=== PATIENT | female | born 1935 | race Caucasian/White ===

== ENCOUNTER → 2016-07-15 | Day surgery (SDC) | payer MEDICARE, OTHER ==
[~2016-07-15] VITALS: Ht 175.3 cm; Wt 73.6 kg
[~2016-07-15] MED LIST: ASPIRIN EC81 MG PO; ATROVENT I0.5 MG/2.5 INH; BYSTOLIC10 MG PO; CARDIZEM CD (T120 MG PO; CARDIZEM LA180 MG PO; CARDURA2 MG PO; COUMADIN ** IA3 MG PO; CYTOTEC200 MCG PO; DIOVAN160 MG PO; FIBER LAXATIVE625 MG PO; FLONASE 50 MCG/16 GM NOSE; ISOSORBIDE MONO20 MG PO; LASIX20 MG PO; LASIX80 MG PO; LEXAPRO20 MG PO; LIPITOR40 MG PO; METAMUCIL CAPSU1 CAP PO; MINOXIDIL2.5 MG PO; MIRALAX17 GM PO; MUCINEX600 MG PO; NITROSTAT0.4 MG SL; NORCO 5-325 TA1 EACH PO; NORVASC10 MG PO; OCUVEL CAPSULE1 EACH PO; OCUVITE SOFTGE1 EACH PO; PAIN RELIEVER500 MG PO; SALINE NASAL SP88 ML NOSE; SENNA-DOCUSATE1 EACH PO; SENNOSIDES-DOC1 EACH PO; SINGULAIR10 MG PO; SYMBICORT 80-10.2 GM INH; TRADJENTA5 MG PO; ULTRAM50 MG PO; VITAMIN B-121000 MCG PO; ZADITOR 0.025% O5 ML OPHTH
--- NOTE | ~2016-07-15 | OR ---
PATIENT'S NAME: BASIM MALCOLM [facility] AGE: 80 Y [address] ROOM: [place] [address] LOCATION: [facility] ADMIT DATE: 07/15/2016 OR/Procedure Report DISCHARGE DATE: FAMILY PHYSICIAN: Kofi Escobar MD ATTENDING PHYSICIAN: BRODIE MCBRIDE SURGEON: Brodie Mcbride MD REPRODUCTION ORDER PROCESSOR: DATE OF PROCEDURE: 07/15/2016 PREOPERATIVE DIAGNOSIS: End-stage renal disease. POSTOPERATIVE DIAGNOSIS: End-stage renal disease. PROCEDURE: Left arm brachiobasilic fistula. LEAD PORTFOLIO MANAGER: HANSEL Aiken. ANESTHESIA: General. ESTIMATED BLOOD LOSS: 5 mL. OPERATIVE FINDINGS: Good thrill and bruit in the fistula. Strong radial and ulnar signals at the end of the case. DESCRIPTION OF PROCEDURE: The patient was brought to the operating room and placed supine on the operative table, placed under general anesthesia, prepped and draped in a sterile manner. Preoperative time-out was performed. The patient received preoperative antibiotics. We used ultrasound guidance to identify the location of the basilic vein as well as the brachial artery. We made a transverse incision 2 cm proximal to the antecubital fossa, dissected down the fascia, incised the fascia in a longitudinal manner, dissected out the basilic vein in a 360-degree fashion. We then ligated and transected it distally. After giving 5000 units of heparin, we made a 4 mm arteriotomy on the brachial artery. We then did a standard 6-0 Prolene anastomosis from the vein to the artery. We removed the clamps. There was excellent flow into the fistula, which was confirmed with the use of Doppler. There was strong radial and ulnar signal. Heparin was reversed with the use of protamine. We used a total of 5000 units of heparin. Deep layers were closed with 2-0 and 3-0 Vicryl. Thrombin was used locally in the wound. Skin was closed with running 4-0 Monocryl. The patient tolerated the procedure well and transferred to recovery room and then home later that day. PATIENT'S NAME: BASIM MALCOLM [facility] AGE: 80 Y [address] ROOM: [place], [place] [address] LOCATION: [facility] ADMIT DATE: 07/15/2016 OR/Procedure Report DISCHARGE DATE: FAMILY PHYSICIAN: Kofi Escobar MD ATTENDING PHYSICIAN: BRODIE MCBRIDE MD FKM/modl /[id number] d: 07/15/162205 t: 07/17/16 1254, OPERATIVE SUMMARY
[2016-07-15 09:31] LABS: BASOPHIL # 0.1 K/uL (0.0-0.2); BASOPHIL % 0.8 %; EOSINOPHIL # 0.1 K/uL (0.0-0.5); EOSINOPHIL % 2.3 %; HEMATOCRIT 26.6 % (30.0-46.0); HEMOGLOBIN 8.5 g/dL (10.0-15.0); IMMATURE GRANULOCYTE % 0.3 %; LYMPHOCYTE # 1.9 K/uL (0.8-4.0); LYMPHOCYTE % 30.6 %; MCH 30.6 pg (27.0-34.0); MCV 95.7 fl (83.0-98.0); MONOCYTE # 0.6 K/uL (0.0-1.0); MPV 10.6 fl (9.4-12.4); NEUTROPHIL # (ANC) 3.5 K/uL (1.8-7.8); NRBC % 0 /100WBC (0-0.00); PLATELET COUNT 276 K/uL (150-450); RBC 2.78 M/uL (3.00-5.00); RDW-CV 17.2 % (11.9-14.6); WBC 6.2 K/uL (4.0-11.0)
[2016-07-15 09:38] LABS: INR - (THERAPEUTIC) 1.46 (0.92-1.07); PROTIME 15.4 SECONDS (9.8-11.4)
[2016-07-15 09:49] LABS: ALBUMIN 2.8 gm/dL (3.5-5.0); CALCIUM 8.4 mg/dL (8.5-10.5); CREATININE 2.2 mg/dL (0.5-1.1); TOTAL PROTEIN 5.3 g/dL (6.0-8.4)
--- NOTE | 2016-07-15 11:48 | NUR ---
1147 LABETOLOL 5 MG IVP FOR BP 191/81
--- NOTE | 2016-07-15 12:20 | NUR ---
1220 REPORT TO Dav HUNT RN TO PHASE 2
== END | disposition disaster alternative care site (69) ==
LOC: GPOC 06-26 15:00 → GSDC 07-01 15:00
PROVIDERS: Surgery Vascular Surgery
PROC: 03180JD Bypass Left Brachial Artery to Upper Arm Vein with Synthetic Substitute, Open Approach (ICD-10-PCS; principal; 2016-07-15)
DX: E11.22 Type 2 diabetes mellitus with diabetic chronic kidney disease (principal); I13.2 Hypertensive heart and chronic kidney disease with heart failure and with stage 5 chronic kidney disease, or end stage renal disease; I50.9 Heart failure, unspecified; N18.6 End stage renal disease; I48.91 Unspecified atrial fibrillation; I73.9 Peripheral vascular disease, unspecified; J45.909 Unspecified asthma, uncomplicated; K21.9 Gastro-esophageal reflux disease without esophagitis; E66.9 Obesity, unspecified; Z68.22 Body mass index [BMI] 22.0-22.9, adult; Z88.0 Allergy status to penicillin; Z88.5 Allergy status to narcotic agent; Z88.2 Allergy status to sulfonamides; Z88.8 Allergy status to other drugs, medicaments and biological substances; Z90.710 Acquired absence of both cervix and uterus; Z98.890 Other specified postprocedural states; Z96.641 Presence of right artificial hip joint; Z87.891 Personal history of nicotine dependence; Z79.82 Long term (current) use of aspirin; Z79.899 Other long term (current) drug therapy
CPT/HCPCS: J1100; J1644; J2001; J2405; J2720; J3010; J7030

== ENCOUNTER 2016-09-09 09:13 | Inpatient (IN) | payer MEDICARE, OTHER ==
[~2016-09-09] VITALS: Ht 175.3 cm; Wt 63.2 kg
--- NOTE | ~2016-09-09 | CON ---
PATIENT'S NAME: BASIM MALCOLM [facility] AGE: 80 Y [address] ROOM: [place] [address] LOCATION: [facility]U ADMIT DATE: 09/09/2016 Consultation DISCHARGE DATE: FAMILY PHYSICIAN: Kofi Escobar MD ATTENDING PHYSICIAN: BRODIE MCBRIDE DATE OF CONSULTATION: 09/09/2016 REFERRING PHYSICIAN: Dandy Coe REQUESTING PHYSICIAN: Brodie Mcbride M.D. REASON FOR CONSULTATION: End-stage renal failure, the patient currently on dialysis. HISTORY OF PRESENT ILLNESS: The patient is an 80-year-old white female, who was started on dialysis couple of months ago because of hypertensive nephrosclerosis. She also had issues with uncontrolled hypertension and fluid overload. Dr. Mcbride did put her in left upper arm AV fistula and she was admitted for revision of the fistula. Normally, she dialyzes on Tuesdays, , and Saturdays. I have been asked to see her because she will need her dialysis treatment tomorrow. REVIEW OF SYSTEMS: GENERAL: She denies any fever, chills, or rigors. HEENT: Denies any sore throat or sinus congestion. CARDIOVASCULAR: Denies any chest pain or dyspnea on exertion. RESPIRATORY: Denies any shortness of breath, cough, or wheezing. GI: Denies any abdominal pain, nausea, or vomiting. : Denies any dysuria or frequency. She still makes urine. MUSCULOSKELETAL: Denies joint pain or swelling. SKIN: Denies rash or pruritus. Denies any allergies or hay fever. PAST MEDICAL HISTORY: Diabetes mellitus, hypertension, orthostatic hypotension, end-stage renal disease, chronic atrial fibrillation, peripheral vascular disease, hyperlipidemia, and congestive heart failure from diastolic dysfunction. PAST SURGICAL HISTORY: Left upper arm primary brachiocephalic AV fistula placement. ALLERGIES: PENICILLIN, RAMIPRIL, MORPHINE, LABETALOL, AND DICYCLOMINE. MEDICATIONS: PATIENT'S NAME: BASIM MALCOLM [facility] AGE: 80 Y [address] ROOM: [address] [place] [id number] LOCATION: [facility]U ADMIT DATE: 09/09/2016 Consultation DISCHARGE DATE: FAMILY PHYSICIAN: Kofi Escobar MD ATTENDING PHYSICIAN: BRODIE MCBRIDE 1. Aspirin 81 mg a day. 2. Atorvastatin 40 mg a day. 3. Bystolic 10 mg a day. 4. Cytotec 200 mcg twice a day. 5. Lexapro 20 mg a day. 6. Singulair 10 mg a day. 7. Symbicort 2 puffs daily. 8. Tramadol 50 mg a day p.r.n. 9. Vitamin B12, 1000 mcg a day. 10. Warfarin as prescribed. 11. Diltiazem 180 mg a day. 12. Furosemide 80 mg a day. 13. Minoxidil 2.5 mg at bedtime. 14. Glutathione 600 mg a day. SOCIAL HISTORY: She lives in [place]. She quit tobacco long time ago. FAMILY HISTORY: Mother had nephritis. Grandfather had diabetes, leading to renal failure, but not on dialysis. PHYSICAL EXAMINATION: GENERAL APPEARANCE: This is an 80-year-old white female, sitting in the hospital bed, not in acute distress. VITAL SIGNS: Temperature 98.1, pulse 71, systolic blood pressure is 180 and diastolic blood pressure 77, and respiratory rate 18. HEENT: Head is normocephalic. Pupils are round and equal. Normal eyelid and conjunctivae. Oral cavity clear. Moist mucous. NECK: Trachea central. No thyromegaly. No bruit. HEART: Heart sounds are audible in all the areas without any gallop or murmur. There is no pericardial rub. Pulse is regular in rhythm. LUNGS: Bilaterally clear to auscultate. No intercostal retraction. ABDOMEN: Soft and nontender. EXTREMITIES: She does not have any leg edema. SKIN: She has left upper arm AV fistula with positive thrill. LABORATORY DATA: Glucose 112, BUN of 80, creatinine of 1.8, and potassium 2.9. Her hemoglobin is 10.5 and hematocrit is 31.5. ASSESSMENT: 1. Dialysis dependent patient. 2. Left upper arm arteriovenous fistula revision. 3. Diabetes mellitus. PATIENT'S NAME: BASIM MALCOLM [facility] AGE: 80 Y [address] ROOM: [id number] [place], [place] [address] LOCATION: [facility]PCU ADMIT DATE: 09/09/2016 Consultation DISCHARGE DATE: FAMILY PHYSICIAN: Kofi Escobar MD ATTENDING PHYSICIAN: BRODIE MCBRIDE 4. Hypertension. 5. Accelerated hypertension. PLAN: Clearance for dialysis tomorrow. I believe that she is significantly volume dependent. She continues to have uncontrolled hypertension and we may have to adjust her antihypertensive medicine. She also has history of orthostatic hypotension. We will plan to see her again on dialysis tomorrow morning. I would like to thank Dr. Mcbride for allowing me to participate in this patient's care. M MD NADEGE JERONIMO/carlos /[id number] d: 09/10/16 1845 t: 10/01/16 1104, CONSULTATION REPORT
--- NOTE | ~2016-09-09 | OR ---
PATIENT'S NAME: BASIM MALCOLM [facility] AGE: 80 Y [address] ROOM: [address] [address] [facility] ADMIT DATE: 09/09/2016 OR/Procedure Report DISCHARGE DATE: FAMILY PHYSICIAN: Kofi Escobar MD ATTENDING PHYSICIAN: BRODIE MCBRIDE SURGEON: Brodie Mcbride MD EMERGENCY MEDICAL TECHNICIAN: DATE OF PROCEDURE: 09/11/2016 PREOPERATIVE DIAGNOSIS: End-stage renal disease. POSTOPERATIVE DIAGNOSIS: End-stage renal disease. PROCEDURE: Left arm brachiobasilic AV fistula superficialization. HELMINTHOLOGIST: HANSEL Aiken. ANESTHESIA: General. ESTIMATED FLUID LOSS: 10 mL. OPERATIVE FINDINGS: Fistula now located directly into the skin. PROCEDURE: The patient was brought to the operating room, placed supine on the operating table, placed under general anesthesia, prepped and draped in a sterile manner. Preoperative time-out was performed. The patient received preoperative antibiotics. We used ultrasound guidance to identify the location of the basilic vein. We then made a longitudinal incision along the path of the vein, dissected down the fascia, incised the fascia in a longitudinal manner, dissected out the vein in a 360-degree fashion, and ligated and transected all branches. We reapproximated the deep layers below the vein using interrupted Vicryl sutures. We then reapproximated the skin with interrupted 4-0 nylon. The patient tolerated the procedure well and transferred to the recovery room and back up to the floor. BRODIE MCBRIDE MD FKM/modl /[id number] d: 09/12/16133 t: 09/21/161811, OPERATIVE SUMMARY
--- NOTE | ~2016-09-09 | HP ---
PATIENT'S NAME: BASIM MALCOLM [facility] AGE: 80 Y [address] ROOM: [place] [address] LOCATION: [facility]PCU ADMIT DATE: 09/09/2016 History & Physical DISCHARGE DATE: FAMILY PHYSICIAN: Kofi Escobar MD ATTENDING PHYSICIAN: CASPER MATTHEWS DATE OF SERVICE: CHIEF COMPLAINT: High blood pressure. HISTORY OF PRESENT ILLNESS: An 80-year-old lady with a past medical history of end-stage renal disease, currently on dialysis, hypertension, diabetes, and peripheral vascular disease, who was here at [facility] for an outpatient procedure for fistula formation on the left side. She was found to be very hypertensive with a blood pressure and systolic blood pressure in the 230s in the preoperative area and was admitted to the hospital and surgery was deferred. On my encounter, she is a very pleasant lady, comfortable. She does not complain of any headache, any dizziness, or any chest pain, or palpitations. She have had trouble with the shortness of breath at home and uses 2 L of oxygen at nighttime, but does not have any active sputum production or shortness of breath, which is more than her baseline. Further inquiry reveals she does not have any abdominal pain, any constipation, any diarrhea, or any weakness anywhere. REVIEW OF SYSTEMS: All other systems were reviewed and were negative except what is mentioned in the HPI. PAST MEDICAL HISTORY: Include: 1. Hypertension. 2. Type 2 diabetes mellitus. 3. Orthostatic hypotension. 4. End-stage renal disease. 5. Essential hypertension. 6. Atrial fibrillation, on long-term anticoagulation. 7. Atrial tachycardia. 8. Peripheral vascular disease. 9. Hyperlipidemia. 10. Chronic hypoxic respiratory failure/nocturnal hypoxia using 2 L of oxygen nighttime. 11. Congestive heart failure, diastolic in nature. PATIENT'S NAME: BASIM MALCOLM [facility] AGE: 80 Y [address] ROOM: [address] [address] LOCATION: [facility]PCU ADMIT DATE: 09/09/2016 History & Physical DISCHARGE DATE: FAMILY PHYSICIAN: Kofi Escobar MD ATTENDING PHYSICIAN: CASPER MATTHEWS ALLERGIES: THE PATIENT IS ALLERGIC TO PENICILLIN, RAMIPRIL, MORPHINE, LABETALOL, DICYCLOMINE, LEVOFLOXACIN, OLMESARTAN, VICTOZA, BENICAR, AND GANTRISIN. SOCIAL HISTORY: The patient quit smoking a long time ago. Lives in [place]. FAMILY HISTORY: Significant for stroke in her father at the age of 50 as well as in grandfather who was younger than age of 50. MEDICATIONS: Per MAR PHYSICAL EXAM: VITAL SIGNS: Blood pressure 215/87, 62, afebrile, 19, saturating above 90% on room air. GENERAL: No acute distress. Alert and oriented x3. HEENT: Head: Atraumatic, normocephalic. Eyes: Nonicteric. No pallor. Oropharynx: Moist mucous membranes. CARDIOVASCULAR: S1, S2. Systolic ejection murmur at the aortic region radiating to the carotids. LUNGS: Clear to auscultation bilaterally. ABDOMEN: Soft, nontender, nondistended. Bowel sounds present. EXTREMITIES: No clubbing, cyanosis, or edema. PSYCH: Normal affect, mood, and speech. NEURO: Cranial nerves 2 through 12 intact. No motor or sensory deficit noted. LABORATORY DATA: Lab work done today was unremarkable for the CBC. Chemical panel was remarkable for a creatinine of 1.8, glucose of 112, and a serum potassium of 2.9, INR was 1.0. ASSESSMENT: 1. Hypertensive urgency. 2. Type 2 diabetes mellitus. 3. End-stage renal disease. 4. Hypertension. 5. Atrial fibrillation, on long-term anticoagulation. 6. Atrial tachycardia. 7. Peripheral vascular disease. 8. Hyperlipidemia. 9. Chronic hypoxic respiratory failure/nocturnal hypoxia. 10. Congestive heart failure diastolic in nature, not exacerbation right now. 11. Hypokalemia. PATIENT'S NAME: BASIM MALCOLM [facility] AGE: 80 Y [address] ROOM: [address] [address] LOCATION: [facility]PCU ADMIT DATE: 09/09/2016 History & Physical DISCHARGE DATE: FAMILY PHYSICIAN: Kofi Escobar MD ATTENDING PHYSICIAN: CASPER MATTHEWS PLAN: 1. We are going to admit this lady to the progressive care unit at this point. We are going to lower the blood pressure very cautiously with low dose of hydralazine. We are going to resume her home medications. We will monitor her there and see her progress there. For diabetes, we are going to put her on sliding scale and monitor the blood glucose level. She have not required insulin for a long time. End-stage renal disease, we will consult Nephrology and see if she is in need of any dialysis. 2. Atrial fibrillation. We will continue to monitor the rhythm and rate on the tele monitor. We will provide supplemental oxygen and replace the potassium. The patient is full code. ACTIVITY: As tolerated. DIET: Renal diet. MD SANDY PAVON/carlos /[id number] D: [id number] T: [id number] HISTORY & PHYSICAL
[2016-09-09 10:09] LABS: BASOPHIL % 0.7 %; EOSINOPHIL % 0.5 %; HEMATOCRIT 31.6 % (30.0-46.0); HEMOGLOBIN 10.5 g/dL (10.0-15.0); IMMATURE GRANULOCYTE % 0.2 %; LYMPHOCYTE # 1.1 K/uL (0.8-4.0); LYMPHOCYTE % 25.5 %; MCH 31.2 pg (27.0-34.0); MCHC 33.2 gm/dL (32.0-36.5); MCV 93.8 fl (83.0-98.0); MONOCYTE # 0.5 K/uL (0.0-1.0); MONOCYTE % 11.9 %; MPV 10.7 fl (9.4-12.4); NEUTROPHIL # (ANC) 2.7 K/uL (1.8-7.8); NEUTROPHIL % 61.2 %; NRBC % 0 /100WBC (0-0.00); RBC 3.37 M/uL (3.00-5.00); RDW-CV 15.5 % (11.9-14.6); WBC 4.4 K/uL (4.0-11.0)
[2016-09-09 10:10] LABS: PLATELET COUNT 207 K/uL (150-450)
[2016-09-09 10:19] LABS: PROTIME 10.5 SECONDS (9.8-11.4)
[2016-09-09 10:28] LABS: ALBUMIN 3.2 gm/dL (3.5-5.0); ANION GAP 11.9 (10.0-19.0); CALCIUM 8.7 mg/dL (8.5-10.5); CREATININE 1.8 mg/dL (0.5-1.1); TOTAL BILIRUBIN 0.8 mg/dL (0.0-1.5); TOTAL PROTEIN 5.7 g/dL (6.0-8.4)
[2016-09-09 10:33] LABS: POTASSIUM 2.9 mMol/L (3.7-5.1)
--- NOTE | 2016-09-09 19:24 | NUR ---
PATIENT TRANSFERED TO PCU AT 12:40. PATIENT HAS RIGHT CHEST TEMPORARY DIALYSIS LINE. LEFT ARM FISTULA WITH PLAN FOR SURGERY ON WEDNESDAY WITH DR MATTHEWS. BP 220/84. DR PERLA NOTIFIED AND IV HYDRALAZINE GIVEN X1. BP 160/75. ORTHOSTATICS COMPLETED AND WRITTEN IN PROGRESS NOTES. PLAN FOR DIALYSIS TOMORROW.
--- NOTE | 2016-09-10 04:19 | NUR ---
Significant Event: SBP'S HAVE BEEN SOMEWHAT CONTROLLED TO WHAT SHE WAS RUNNING. PREVIOUSLY HAD BEEN ABOVE 200, DURING SHIFT ALL SBP'S IN THE 170'S WITH A HIGH OF 180, DO HAVE PRN HYDRALAZINE IF >180. ALL OTHER VSS. PUT 2L ON HS PER HOME DOSE. CONSULTED NEPHROLOGY. WILL HAVE DIALYSIS TODAY AND THEN FISTULA REVISION/SUPERVISULIZAITON ON WEDNESDAY. Follow up:
[2016-09-10 04:30] LABS: ANION GAP 11.3 (10.0-19.0); CALCIUM 8.9 mg/dL (8.5-10.5); CREATININE 2.1 mg/dL (0.5-1.1); POTASSIUM 3.3 mMol/L (3.7-5.1)
--- NOTE | 2016-09-10 17:08 | NUR ---
Significant Event: PT IS AOX3. SBPs 120-210S. 60-70s. NSR. AFEBRILE. RA, WEARS 2L AT HS. IV R)UA SALINE LOCKED. R) TEMPORARY DIALYSIS CATH. L)FISTULA. GOOD BRUIT AND THRILL. FISTULA REVISION PLANNED FOR TOMORROW AM. PERMITS NEED SIGNED. PT HAD DIALYZED 1.4 LITERS OFF TODAY. UP SBA, DENIES PAIN. PLEASANT AND COOPERATIVE WITH CARES. Follow up: SURGERY TOMORROW?
[2016-09-11 03:53] LABS: ALBUMIN 2.8 gm/dL (3.5-5.0); ANION GAP 12.1 (10.0-19.0); CALCIUM 8.2 mg/dL (8.5-10.5); CREATININE 1.6 mg/dL (0.5-1.1); POTASSIUM 4.1 mMol/L (3.7-5.1)
[2016-09-11 03:55] LABS: PHOSPHORUS 1.4 mg/dL (2.5-4.9)
--- NOTE | 2016-09-11 04:24 | NUR ---
Significant Event: Patient A/Ox3. VSS on RA, but patient has been very hypertensive this shift. Blood pressures at the beginning of the shift were 200s-210s. IV hydralazine given with no improvements. PO hydralazine ordered by Dr. Tracy with no improvements. Did start patient on IV labetalol gtt. Gave 40mEq of PO K+ for K+ of 3.3. Permits signed for fistula repair. Blood pressures since starting labetalol gtt have been 160s-170s. Patient does begin to feel light headed with blood pressures around 150. Patient has been NPO since midnight. Follow up: Fistula repair today
--- NOTE | 2016-09-11 10:36 | NUR ---
D:Patient left for [facility] at 0810 per cart.
--- NOTE | 2016-09-11 15:30 | NUR ---
D:Patient returned from PACU per cart. Is sleepy, but does rouse, able to answer questions approp. Labetolol is off. Has dressing to left upper arm, has small amount of drainage- bloody. Family waiting in room. Is on 4L O2. P:Monitor post revision of fistula
--- NOTE | 2016-09-11 17:05 | NUR ---
Significant Event:Patient had revision of fistula today. Dressing is has small to mod amount of drainage to it. Labetolol gtt is off, has been since OR. Will be restarting home meds. Is on O2 4L, has been sleepy since OR. Accuchecks- at 0700-137, 1100-153. Patient wants to go go home tomorrow. Will have dialysis tomorrow at 0900. Follow up:Restart Coumadin when?
--- NOTE | 2016-09-12 05:10 | NUR ---
Significant Event: PT is A&0x3. Lung sounds are clear on 4L. PT has a small amount of dried drainage under the surgical dressing. Bruit can be heard at the revised fistula and a thrill can be felt. PPP, but thready in the lower extremities and the left radial. Accucheck at 2100 - 242. Up SBA to bathroom. Tylenol given once at 1900. Follow up: Dialysis at 0900 today.
[2016-09-12 06:08] LABS: ALBUMIN 2.9 gm/dL (3.5-5.0); ANION GAP 13.3 (10.0-19.0); CALCIUM 8.5 mg/dL (8.5-10.5); PHOSPHORUS 3.6 mg/dL (2.5-4.9); POTASSIUM 4.3 mMol/L (3.7-5.1)
[2016-09-12 06:12] LABS: CREATININE 2.6 mg/dL (0.5-1.1)
--- NOTE | 2016-09-12 13:59 | NUR ---
D:Patient to dialusis at 1000, will be having CXR first. P:Possible dc post dialysis
--- NOTE | 2016-09-12 18:31 | NUR ---
D:Patient returned from dialysis, patient excited to go home. In dialysis they removed 2L of fluid. Initially SBP was 204 when taken after getting back to the room at 1450. 10 minutes later SBP was 175. Dr. Yao up here to discharge patient. Hydrazaline les.Ivette and Rusty given. Daughter is here. P:Discharge patient back to group home
--- NOTE | 2016-09-12 18:45 | NUR ---
D:Patient is going back to [facility], she is SNF. Patient was there prior to admission here. Dressing to left upper arm, has old drainage. It may be removed after 48 hours and left open to air. No change in medication. Has temporary line to right chest. Has personal belongings. Discharge per wheelchair, released to daughter, has personal belongings. Discharged per wheelchair at 1650.
== END 2016-09-12 16:30 | disposition disaster alternative care site (69) | DRG 252 ==
LOC: GSDC 09:13 → GPCU 09:13 → GSDC 09:14 → GPOC 10:30 → GPCU 09-12 16:30
PROVIDERS: Internal Medicine Nephrology; ADMIT Surgery Vascular Surgery
PROC: 03W Upper Arteries, Revision (ICD-10-PCS; principal; 2016-09-11)
DX: I16.0 Hypertensive urgency (principal); N18.6 End stage renal disease; I50.30 Unspecified diastolic (congestive) heart failure; I13.2 Hypertensive heart and chronic kidney disease with heart failure and with stage 5 chronic kidney disease, or end stage renal disease; Z99.2 Dependence on renal dialysis; Z87.891 Personal history of nicotine dependence; Z88.8 Allergy status to other drugs, medicaments and biological substances; I95.1 Orthostatic hypotension; I48.2 Chronic atrial fibrillation; Z79.01 Long term (current) use of anticoagulants; E11.22 Type 2 diabetes mellitus with diabetic chronic kidney disease; E11.51 Type 2 diabetes mellitus with diabetic peripheral angiopathy without gangrene; R09.02 Hypoxemia; Z99.81 Dependence on supplemental oxygen; E78.5 Hyperlipidemia, unspecified; E87.6 Hypokalemia
CPT/HCPCS: J0360; J0690; J1644; J2001; J2250; J2405; J3480; J7030; J7050